=== PATIENT | female | born 1995 | race Caucasian/White ===

== ENCOUNTER 2025-02-12 08:46 | Emergency (ER) | payer SELFPAY ==
[~2025-02-12] VITALS: Ht 170.2 cm; Wt 83.9 kg
[2025-02-12] MEDS ORDERED: Clindamycin 600mg in D5W 50 ML IV SCH (12:45)
[2025-02-12] MEDS ORDERED: Morphine Sulfate 4 MG/1 ML Injection IV ONE (12:45)
[2025-02-12] MEDS ORDERED: Clindamycin 600mg in D5W 50 ML IV ONE (12:50)
[2025-02-12] MEDS ORDERED: Dexamethasone Sod Phos 10 MG/ML 1ML VIAL PO ONE (13:15)
[2025-02-12] MEDS ORDERED: AMOCLA875 PO (13:29)
== END 2025-02-12 13:48 | disposition home or self-care (01) ==
LOC: ER 08:46
DX: J02.9 Acute pharyngitis, unspecified (principal)
CPT/HCPCS: 70491; 87081; 87430; 96374-59; 96375-59; 99283-25; J1100; J2270; Q9967